=== PATIENT | female | born 1975 | race Native Hawaiian/Other Pacific Islander ===

== ENCOUNTER 2016-07-15 10:45 | Outpatient (CLI) | payer BC | END 2016-07-16 02:00 | disposition home or self-care (01) | LOC: MAMMO 10:45 | DX: Z12.31 Encounter for screening mammogram for malignant neoplasm of breast (principal) | CPT/HCPCS: G0202-TC ==

== ENCOUNTER 2017-08-01 13:09 | Outpatient (CLI) | payer BC | END 2017-08-01 18:00 | disposition home or self-care (01) | LOC: MAMMO 13:09 | DX: Z12.31 Encounter for screening mammogram for malignant neoplasm of breast (principal) ==

== ENCOUNTER 2018-09-12 11:53 | Emergency (ER) | payer BC ==
[~2018-09-12] VITALS: Ht 152.4 cm; Wt 68.0 kg
[2018-09-12 15:51] VITALS: BP 131/81; TEMP 98.2
== END 2018-09-12 15:51 | disposition home or self-care (01) ==
LOC: ED 11:53
PROC: 0JQ80ZZ Repair Abdomen Subcutaneous Tissue and Fascia, Open Approach (ICD-10-PCS; principal; 2018-09-12)
PROC: 0JQP0ZZ Repair Left Lower Leg Subcutaneous Tissue and Fascia, Open Approach (ICD-10-PCS; 2018-09-12)
DX: S81.812A Laceration without foreign body, left lower leg, initial encounter (principal); S31.114A Laceration without foreign body of abdominal wall, left lower quadrant without penetration into peritoneal cavity, initial encounter; W18.02XA Striking against glass with subsequent fall, initial encounter; W13.8XXA Fall from, out of or through other building or structure, initial encounter
CPT/HCPCS: 90471; 90715; 96372; 99283; J2001; J2405; J7040

== ENCOUNTER 2018-11-25 09:56 | Outpatient (CLI) | payer BC | END 2018-11-25 23:06 | disposition home or self-care (01) | LOC: MAMMO 09:56 | DX: Z12.31 Encounter for screening mammogram for malignant neoplasm of breast (principal) ==

== ENCOUNTER 2020-10-13 22:25 | Emergency (ER) | payer BC ==
[~2020-10-13] VITALS: Ht 152.4 cm; Wt 68.0 kg
[2020-10-13 22:35] VITALS: BP 144/91; TEMP 98
== END 2020-10-13 23:50 | disposition home or self-care (01) ==
LOC: ED 22:25
DX: M62.830 Muscle spasm of back (principal); M79.18 Myalgia, other site; X50.1XXA Overexertion from prolonged static or awkward postures, initial encounter; Y93.E2 Activity, laundry; Y92.89 Other specified places as the place of occurrence of the external cause
CPT/HCPCS: 96372; 99283; J1885

== ENCOUNTER 2020-10-18 16:25 | Outpatient (CLI) | payer BC | END 2020-10-18 21:19 | disposition home or self-care (01) | LOC: RAD 16:25 | PROVIDERS: ATTEND Internal Medicine | DX: M54.9 Dorsalgia, unspecified (principal) ==

== ENCOUNTER 2021-05-29 13:10 | Outpatient (CLI) | payer BC | END 2021-05-29 19:16 | disposition home or self-care (01) | LOC: MAMMO 13:10 | PROVIDERS: ATTEND Internal Medicine | DX: N64.59 Other signs and symptoms in breast (principal); Z12.31 Encounter for screening mammogram for malignant neoplasm of breast ==

== ENCOUNTER 2021-06-19 12:24 | Outpatient (CLI) | payer BC | END 2021-06-19 19:30 | disposition home or self-care (01) | LOC: MAMMO 12:24 | PROVIDERS: ATTEND Internal Medicine | DX: N64.59 Other signs and symptoms in breast (principal) ==

== ENCOUNTER 2021-08-06 13:36 | Outpatient (CLI) | payer BC | END 2021-08-06 19:13 | disposition home or self-care (01) | LOC: RESP 13:36 | PROVIDERS: ATTEND Nurse Practitioner Family | DX: J45.909 Unspecified asthma, uncomplicated (principal) | CPT/HCPCS: 36415; 82785; 86003 ==

== ENCOUNTER 2021-12-27 09:15 | Outpatient (CLI) | payer BC | END 2021-12-27 19:24 | disposition home or self-care (01) | LOC: MAMMO 09:15 | PROVIDERS: ATTEND Internal Medicine | DX: Z12.31 Encounter for screening mammogram for malignant neoplasm of breast (principal); N64.59 Other signs and symptoms in breast | CPT/HCPCS: G0279 ==

== ENCOUNTER 2022-06-13 23:19 | Emergency (ER) | payer BC ==
[~2022-06-13] VITALS: Ht 152.4 cm; Wt 68.0 kg
[2022-06-14 00:18] VITALS: BP 139/88; TEMP 98.4
== END 2022-06-14 00:18 | disposition home or self-care (01) ==
LOC: ED 23:19
DX: H60.8X2 Other otitis externa, left ear (principal); J01.00 Acute maxillary sinusitis, unspecified
CPT/HCPCS: 96372; 99283; J1885

== ENCOUNTER 2022-06-27 12:32 | Outpatient (CLI) | payer BC | END 2022-06-27 20:43 | disposition home or self-care (01) | LOC: MAMMO 12:32 | PROVIDERS: ATTEND Internal Medicine | DX: Z12.31 Encounter for screening mammogram for malignant neoplasm of breast (principal) ==

== ENCOUNTER 2022-08-05 12:46 | Outpatient (CLI) | payer BC | END 2022-08-05 21:38 | disposition home or self-care (01) | LOC: MAMMO 12:46 | PROVIDERS: ATTEND Internal Medicine | DX: N64.59 Other signs and symptoms in breast (principal) ==

== ENCOUNTER 2022-11-24 18:07 | Emergency (ER) | payer BC ==
[~2022-11-24] VITALS: Ht 152.4 cm; Wt 68.0 kg
[2022-11-24 18:32] VITALS: TEMP 98.7
[2022-11-24 18:37] LABS: PLATELET COUNT 194 K/uL (152-353)
[2022-11-24 18:59] LABS: POTASSIUM 3.9 mmol/L (3.6-5.2)
[2022-11-24 20:44] VITALS: BP 166/88
== END 2022-11-24 20:44 | disposition home or self-care (01) ==
LOC: ED 18:07
PROVIDERS: Family Medicine
DX: K52.9 Noninfective gastroenteritis and colitis, unspecified (principal); R10.9 Unspecified abdominal pain; N20.0 Calculus of kidney; E11.9 Type 2 diabetes mellitus without complications; E86.0 Dehydration
CPT/HCPCS: 80053; 80307; 81002; 82150; 83605; 83690; 85027; 96360; 96374; 96375; 99283; 99284; J0500; J1885; J2405; J2765